=== PATIENT | female | born 1990 | race Caucasian/White ===

== ENCOUNTER 2020-08-14 12:41 | Emergency (ER) | payer OTHER ==
[~2020-08-14] VITALS: Ht 157.5 cm; Wt 90.7 kg
[2020-08-14] MEDS ORDERED: CITALOPRAM10 MG/5 ML PO (12:50)
[2020-08-14] MEDS ORDERED: IRON18 MG PO (12:51)
[2020-08-14] MEDS ORDERED: ACID REDUCER20 M1 PO (12:52)
[2020-08-14] MEDS ORDERED: BENADRYL25 MG PO (12:52)
[2020-08-14] MEDS ORDERED: MIRENA1 EACH IY (12:53)
[2020-08-14] MEDS ORDERED: WELLBUTRIN SR100 MG PO (12:53)
== END 2020-08-14 17:42 | disposition home or self-care (01) ==
LOC: ER 12:41
DX: K29.70 Gastritis, unspecified, without bleeding (principal); Z03.818 Encounter for observation for suspected exposure to other biological agents ruled out; R19.7 Diarrhea, unspecified; R11.11 Vomiting without nausea; R10.13 Epigastric pain